=== PATIENT | male | born 1960 | race Caucasian/White ===

== ENCOUNTER → 2017-12-20 | Outpatient (CLI) | payer OTHER | END | disposition home or self-care (01) | LOC: CVU 15:15 | PROVIDERS: ATTEND Internal Medicine Cardiovascular Disease | DX: I10 Essential (primary) hypertension (principal); E78.5 Hyperlipidemia, unspecified; I82.409 Acute embolism and thrombosis of unspecified deep veins of unspecified lower extremity; I26.99 Other pulmonary embolism without acute cor pulmonale | CPT/HCPCS: 93306 ==

== ENCOUNTER 2018-11-27 08:19 | Outpatient (CLI) | payer OTHER | END 2018-11-27 23:59 | disposition home or self-care (01) | LOC: CFH 08:19 | PROVIDERS: ATTEND Genetic Counselor, MS | DX: M81.0 Age-related osteoporosis without current pathological fracture (principal) | CPT/HCPCS: 77080 ==